=== PATIENT | female | born 1955 | race Caucasian/White ===

== ENCOUNTER 2019-01-29 11:46 | Emergency (ER) | payer OTHER ==
[~2019-01-29] VITALS: Ht 170.2 cm; Wt 116.6 kg
[2019-01-29 11:52] VITALS: BP 180/90; Ht 170.2 cm; Wt 116.6 kg
== END 2019-01-29 12:30 | disposition home or self-care (01) ==
LOC: ED 11:46
DX: R51 Headache (principal); I10 Essential (primary) hypertension; Z76.0 Encounter for issue of repeat prescription